=== PATIENT | male | born 1970 | race Caucasian/White ===

== ENCOUNTER 2017-02-13 20:26 | Inpatient (IN) | payer SELFPAY ==
[~2017-02-13] VITALS: Ht 188 cm; Wt 140.5 kg
--- NOTE | ~2017-02-13 | CON ---
PATIENT'S NAME: SHAI LAKE [facility] AGE: 46 Y [address] ROOM: [address] [place] [id number] LOCATION: [facility] ADMIT DATE: 02/14/2017 Consultation DISCHARGE DATE: FAMILY PHYSICIAN: PHYSICIAN, LUIS E ATTENDING PHYSICIAN: ISIDRO PATTERSON DATE OF CONSULTATION: 02/14/2017 CONSULTATION NOTE CONSULTING PHYSICIAN: Dr. Patterson. REASON FOR CONSULTATION: Kidney stones, urosepsis, and an indwelling nephrostomy tube. HISTORY OF PRESENT ILLNESS: This is a 46-year-old, admitted with probable urosepsis. He had increasing respiratory symptoms and was unstable. There was a concern regarding urosepsis. He was admitted to the intensive care unit. History was sketchy. We have now gotten his information from [place], and his is here. She is a traveling nurse and well educated. Approximately three weeks ago, he had pain symptoms. He underwent evaluation in [place]. He was found to have bilateral ureteral calculi by report. He underwent a right percutaneous nephrostomy tube drainage. They did not do anything on the left side, and based on followup scan reports and based on his current CT scan, it looks like he was able to pass the left-sided stone. Importantly, we do not see any stone or obstruction now. There are some mild inflammatory changes, and that may be related to the infection or to a recently passed stone. The right percutaneous tube became occluded. He underwent a nephrostomy tube change. By report, he had the 6-mm ureteral stone and some smaller stones in the collecting system. I do not see anything on the right side on the current CT scan. What we do see is that the percutaneous tube has been pulled back. Most of it is in the parenchyma rather than in the collecting system. There is no hydronephrosis by CT scan. I suspect that he may have been in a situation where they did not have Urology available. Therefore, Interventional Radiology, addressed the obstruction with the percutaneous tube. Based on his current scan, he does not need the percutaneous tube. With the question of urosepsis, we will also get the foreign body out. He is not draining a lot from the nephrostomy. PATIENT'S NAME: SHAI LAKE [facility] AGE: 46 Y [address] ROOM: [address] [place], [place] [address] LOCATION: [facility] ADMIT DATE: 02/14/2017 Consultation DISCHARGE DATE: FAMILY PHYSICIAN: PHYSICIAN, LUIS E ATTENDING PHYSICIAN: ISIDRO PATTERSON He does have chronic renal insufficiency. He had a creatinine of 2.2. That is now 1.7 after support and hydration. By report, he actually had a couple of episodes of dialysis while in [place]. His renal insufficiency would be multifactorial, but an obstructive component was likely a contributor and may have led to the urgent nephrostomy tube. Again, I have reviewed his CT scan personally. I reviewed the reports. There was no evidence of any significant obstruction. I went ahead and removed his nephrostomy tube. He is going to have a Nephrology evaluation by Dr. De La Torre. I have recommended a broad antibiotic coverage pending cultures. They can then be tailored appropriately. Please give me a call, if there are any other questions or concerns. IMPRESSION: 1. Bilateral ureterolithiasis by report and now resolved. 2. Indwelling right nephrostomy tube - removed. 3. Bilateral hydronephrosis secondary to bilateral ureterolithiasis by report -resolved. 4. Urosepsis with gram-negative conor on preliminary cultures. 5. Chronic renal insufficiency with recent episode of acute renal failure. PLAN AND RECOMMENDATIONS: As above. MD CHAS WILLIAM/tahir /[id number] d: 02/15/17 1356 t: 02/22/17 1159, CONSULTATION REPORT
--- NOTE | ~2017-02-13 | ER ---
PATIENT'S NAME: JAYA [facility] AGE: 46 Y [address] ROOM: [address] [place], [place] [address] LOCATION: [facility] ADMIT DATE: 02/14/2017 ER/Outpatient Report DISCHARGE DATE: FAMILY PHYSICIAN: PHYSICIAN, NO ATTENDING PHYSICIAN: ISIDRO PATTERSON Admission date and time documented in the medical record. I did see the patient at 2035 hours. CHIEF COMPLAINT: Shortness of breath x1 week, worse over the past [address] trip from [place] over the past couple days. HISTORY OF PRESENT ILLNESS: This patient is a 46-year-old male who has traveled from [place] here to [place], [place]. His , who is a traveling nurse, got a job here in [place]. Apparently, the patient was recently in the hospital in [place], ended up having a right ureteral stone that was obstructing, ended up having to have a right nephrostomy tube placed. The patient does have multiple medical problems including nephrolithiasis, ykk-mdwohbx-lrjjgagcb diabetes mellitus type 2, saddle pulmonary embolism 3 years ago, and he was code blue x2. He was on Coumadin for about 4 months and this was discontinued. He does have peripheral neuropathy secondary to his diabetes. He has had depression. He was told that when he got to [place], [place] that he needed to see a urologist and have further evaluation of his kidneys, possible lithotripsy. No headache, eyes ears, nose, throat, neck, or spine pain. No recent coughs, colds, or flus. Little lightheaded and dizzy, but no syncope or near syncope. No fall or trauma. No chest pain. No real abdominal pain, nausea, vomiting, diarrhea, or urinary frequency, urgency, or dysuria. Makes minimal amount of urine, so it is questionable what is going on with his left kidney. Does have a history of depression. Does have a history of peripheral neuropathy. No other neurological changes. Does have try-gpvdghz-shzgvmurd diabetes, but no other endocrine problems. No skin eruptions or rash. Does have peripheral edema. HOME MEDICATIONS: See attached medication list. ALLERGIES: PENICILLIN AND BEE STINGS. SOCIAL HISTORY: Nonsmoker and nondrinker. SIGNIFICANT PAST MEDICAL HISTORY: PATIENT'S NAME: JAYA [facility] AGE: 46 Y [address] ROOM: [address] [place], [place] [address] LOCATION: [facility] ADMIT DATE: 02/14/2017 ER/Outpatient Report DISCHARGE DATE: FAMILY PHYSICIAN: PHYSICIAN, NO ATTENDING PHYSICIAN: ISIDRO PATTERSON Nephrolithiasis, dtz-bnkmctv-wlwoezfkc diabetes mellitus type 2, peripheral neuropathy, pulmonary embolism, code blue x2 because of the saddle embolus, PE, depression, poor dentition. PAST SURGICAL HISTORY: PICC line placement and right nephrostomy tube placement. REVIEW OF SYSTEMS: All systems reviewed by me are negative with the exception of those discussed in the history of present illness. PHYSICAL EXAMINATION: VITAL SIGNS: Temperature 99.5, tympanic; pulse 128, regular; respirations 22; blood pressure 118/70; O2 saturation on room air is 95%. HEAD: Normocephalic. No abrasion, contusion, laceration, or swelling of the scalp or face. EYES: Extraocular muscles intact. PERRL. Sclerae and conjunctivae clear, nonicteric. EARS: Clear TMs bilaterally. NOSE: Clear. THROAT: Clear. Mucous membranes moist. Poor dentition. Multiple cavities. Edentulous in the upper jaw. NECK: No nuchal rigidity. No thyromegaly or cervical adenopathy. No tenderness. Full range of motion. SPINE: Nontender. No deformity. LUNGS: Clear. No rales, rhonchi, or wheezes. HEART: Regular. Pulses are palpable. The patient is tachypneic and tachycardic. No chest wall or ribcage pain to palpation. ABDOMEN: Large obese abdomen. Soft, nontender. Bowel tones present. No organomegaly or abnormal mass palpable. No CVA tenderness. The patient has a right nephrostomy tube. PELVIS: Stable. EXTREMITIES: Peripheral edema. No cyanosis. No deformity. NEURO: Cranial nerves appear to be intact. No lateralizing sign. The patient is awake, alert, alert, cooperative. Motor and sensory intact. SKIN: Clear. No skin eruptions or rash. EKG showed old inferior changes. No acute ST elevation, ischemic changes, or arrhythmia. Chest x-ray showed marked cardiomegaly. No acute infiltrate. We will review x-ray with the radiologist. LABORATORY DATA: CMS showed a low sodium of 134, low CO2 content of 18, elevated glucose of 301, low calcium of 8.4, elevated BUN of 30, elevated creatinine 2.2 with a low GFR of 34. Magnesium was low at 1.7. BHB acetone was elevated at 12.8. PATIENT'S NAME: SHAI LAKE [facility] AGE: 46 Y [address] ROOM: [place] [address] LOCATION: [facility] ADMIT DATE: 02/14/2017 ER/Outpatient Report DISCHARGE DATE: FAMILY PHYSICIAN: LUIS E RODRIGUEZ ATTENDING PHYSICIAN: ISIDRO PATTERSON CPK was normal at 141. Point of care cardiac enzymes were normal. CRP was elevated at 15.9. ProBNP was elevated at 376. TSH was normal at 1.3. Procalcitonin was elevated at 2.08. Lactate was normal at 1.2. D-dimer was elevated at 2.39. Urinalysis showed full field whites, 2-5 reds, 0-2 epithelial cells, many bacteria, many yeast, positive nitrites on dipstick. Venous pH was 7.44. EMERGENCY DEPARTMENT COURSE: In view of the patient's complaints of shortness of breath, he was tachycardic and tachypneic along with an elevated D-dimer with a past history of pulmonary embolism, we did go ahead with V/Q scan of his lungs. Because of his renal function, we could not do an IV contrast CT. The patient's V/Q scan of his lungs showed very low probability of pulmonary embolism according to Radiology report. We are concerned that the patient may have sepsis. He does fit sepsis criteria with tachycardia, tachypnea, fever, elevated procalcitonin, elevated creatinine, elevated bilirubin. He has been stable with his blood pressure. We did start the patient on aggressive IV fluids, given him 2 L here in the emergency room and then started him on 150 mL an hour. We did do blood cultures, results pending. We did also start the patient on IV antibiotics including Zyvox, Levaquin, and meropenem IV here in the emergency department. IMPRESSION: 1. Severe sepsis with start time at 2357 hours. 2. Xqrqm-kn-nmlmvls renal failure. 3. Dvm-qqtlbwh-rvcumazzw diabetes mellitus with early diabetic ketoacidosis. 4. Shortness of breath with still a possibility of pulmonary embolism with his risk factors. 5. Peripheral neuropathy. 6. Depression. 7. History of nephrolithiasis with right nephrostomy tube because of obstruction of the right ureter secondary to ureteral stone. Need to rule out obstruction or problems with the left kidney. PLAN: I did discuss this patient with Dr. Patterson, hospitalist. Dr. Patterson is coming to the emergency room to evaluate the patient. We will proceed on his recommendations. The patient will be admitted either to the ICU or PCU telemetry. We will need Cardiology consult, industrial design engineer consult, and Urology consult. Discussion ensued with the patient concerning my findings and recommendations, he and his understand. Accumulated critical care time 40 minutes. PATIENT'S NAME: SHAI LAKE [facility] AGE: 46 Y [address] ROOM: [id number] [place] [id number] LOCATION: [facility] ADMIT DATE: 02/14/2017 ER/Outpatient Report DISCHARGE DATE: FAMILY PHYSICIAN: PHYSICIAN, NO ATTENDING PHYSICIAN: ISIDRO PATTERSON MD OPAL COLLAZO/modl /[id number] d: 02/14/17 0511 t: 02/15/17 1805, OUTPATIENT REPORT
--- NOTE | ~2017-02-13 | ENPV ---
Vascular Lower Extremities DVT Study Procedure Demographics Patient Name SHAI LAKE Date of Study 02/14/2017 Patient Number [id number] Gender Male Date of 1970 Age 46 Visit Number [id number] Height Accession Number [id number] Weight Room Number G6214 BSA BMI Referring Jayleen Mari MD Interpreting Fernandez Sr MD Physician Physician Physician Ordering Physician Jayleen Mari Physical Education Professor Merchandise Coordinator Elmira De La Rosa T Conclusions Summary No evidence of deep vein thrombosis or superficial thrombophlebitis in the lower extremities bilaterally . Procedure Type of Study: Veins:Lower Extremities DVT Study, Venous Duplex Lower Extremity Bilateral. Indications for Study:Swelling of Limb. Appropriate Use Criteria:9 Patient Status:STAT. Study Location:ER. Technical Quality:Limited visualization due to body habitus. Velocities are measured in cm/s ; Diameters are measured in cm Right Lower Extremities DVT Study Measurements Right 2D and Doppler Measurements + + + + +------+------+ + !Location !Visualized!Compressibility!Thrombosis!Signal!Reflux!Reflux ! ! ! ! ! ! ! !(sec) ! + + + + +------+------+ + !GSV Thigh !Yes !Yes !None !Phasic!No ! ! + + + + +------+------+ + !Common !Yes !Yes !None !Phasic!No ! ! !Femoral ! ! ! ! ! ! ! + + + + +------+------+ + !Prox !Yes !Yes !None !Phasic!No ! ! !Femoral ! ! ! ! ! ! ! + + + + +------+------+ + !Mid Femoral!Yes !Yes !None !Phasic!No ! ! + + + + +------+------+ + !Dist !Yes !Yes !None !Phasic!No ! ! !Femoral ! ! ! ! ! ! ! + + + + +------+------+ + !Popliteal !Yes !Yes !None !Phasic!No ! ! + + + + +------+------+ + !Gastroc !Yes !Yes !None !Phasic!No ! ! + + + + +------+------+ + !PTV !Yes !Yes !None !Phasic!No ! ! + + + + +------+------+ + !Peroneal !Yes !Yes !None !Phasic!No ! ! + + + + +------+------+ + Left Lower Extremities DVT Study Measurements Left 2D and Doppler Measurements + + + + +------+------+ + !Location !Visualized!Compressibility!Thrombosis!Signal!Reflux!Reflux ! ! ! ! ! ! ! !(sec) ! + + + + +------+------+ + !GSV Thigh !Yes !Yes !None !Phasic!No ! ! + + + + +------+------+ + !Common !Yes !Yes !None !Phasic!No ! ! !Femoral ! ! ! ! ! ! ! + + + + +------+------+ + !Prox !Yes !Yes !None !Phasic!No ! ! !Femoral ! ! ! ! ! ! ! + + + + +------+------+ + !Mid Femoral!Yes !Yes !None !Phasic!No ! ! + + + + +------+------+ + !Dist !Yes !Yes !None !Phasic!No ! ! !Femoral ! ! ! ! ! ! ! + + + + +------+------+ + !Popliteal !Yes !Yes !None !Phasic!No ! ! + + + + +------+------+ + !Gastroc !Yes !Yes !None !Phasic!No ! ! + + + + +------+------+ + !PTV !Yes !Yes !None !Phasic!No ! ! + + + + +------+------+ + !Peroneal !Yes !Yes !None !Phasic!No ! ! + + + + +------+------+ + Signature dtt: RAE COMER dtlizzy: 02/14/17 0031 Physician Self La
--- NOTE | ~2017-02-13 | ECHO ---
Transthoracic Echocardiography Report (TTE) Demographics Patient Name SHAI LAKE Date of Study 02/14/2017 Patient Number [id number] Visit Number [id number] Date of 1970 Room Number G6214 Accession Number [id number] Gender Male Age 46 year(s) Referring Jayleen Mari MD Extrusion Manager Elmira De La Rosa RVT Physician Physician Interpreting Berna Otero Jumbo Operator Physician Supervising Ordering Physician Pascale Barragan MD, MD/P Nurse Stress Infrastructure Developer Conclusions Summary The estimated left ventricular ejection fraction is 50%. Mildly reduced RV function. Procedure Type of Study TTE procedure:2D Echocardiogram. Procedure Date Date: 02/14/2017 Start: 12:59 AM Study Location: ER Technical Quality: Poor visualization due to body habitus. Indications:Dyspnea/SOB. Appropriate Use Criteria: 9 Patient Status: STAT Contrast Medium: Definity. Amount - 4 ml HR: 121 bpm Findings Left Ventricle Normal left ventricle size and function. Right Ventricle Normal right ventricle structure with mild hypokinesia. Left Atrium Normal left atrial size. Right Atrium Normal right atrial size. Mitral Valve Normal mitral valve structure and function. Aortic Valve Normal aortic valve structure and function. Tricuspid Valve Normal tricuspid valve structure and function. Pulmonic Valve Pulmonic valve is not well seen. Pericardial Effusion No evidence of pericardial effusion. Miscellaneous Visualized portions of the aortic root and ascending aorta appear normal in size. Pleural Effusion No evidence of pleural effusion. Contractility Score LV regional wall motion:(0-Non visualized 1-Normal 2-Hypokinesis 3-Akinesis 4-Dyskinesis 5-Aneurysm) Signature dtt: Shanna Coronel dtd: 02/14/17 0059 Physician Self Edit
--- NOTE | ~2017-02-13 | DS ---
PATIENT'S NAME: JAYA [facility] AGE: 46 Y [address] ROOM: [place] [address] LOCATION: GICU ADMIT DATE: 02/14/2017 Discharge Summary DISCHARGE DATE: 02/19/2017 FAMILY PHYSICIAN: PHYSICIAN, NO ATTENDING PHYSICIAN: Kiran Ashraf ADMITTING DIAGNOSIS: Severe sepsis secondary to urinary tract infection with E. coli bacteremia. DISCHARGE DIAGNOSIS: Severe sepsis secondary to E. coli bacteremia, resolving. SECONDARY DIAGNOSES: 1. Acute pyelonephritis. 2. Acute hypoxic respiratory failure secondary to severe sepsis. 3. Hypertension. 4. Obesity. 5. Restrictive airway disease. 6. NIK, resolved. 7. Hypertension. PROCEDURES PERFORMED: 1. Bilateral venous Doppler, negative for DVT. 2. V/Q scan, low probability of thromboembolism. 3. CT of abdomen and pelvis that shows left-sided nephrostomy tube and pyelonephritis without stone. 4. Echocardiogram, EF of 50% with mild RV dysfunction. 5. PFT that shows restrictive airway disease. CONSULTATION: Nephrology and Urology. HISTORY OF PRESENT ILLNESS: The patient is a 46-year-old gentleman with past medical history of hypertension; history of PE, treated with Coumadin for 4 months; and recent history of obstructive pyelonephritis, status post nephrostomy tube placement at [facility] as early as January 2017, who presents here with severe sepsis secondary to E. coli. The patient was recently diagnosed with obstructive uropathy complicated with acute pyelonephritis and had a nephrostomy tube placed at [facility]. The patient was also discharged on daptomycin for Enterococcus faecalis which he finished his treatment. Nephrostomy tube was not taken out and was told to follow up with Urology at [place]. The patient presented with fatigue, fever, chills, and dyspnea on exertion. HOSPITAL COURSE: The patient was noted to be in severe sepsis. Blood culture was taken. The patient's old daptomycin was continued. The patient was PATIENT'S NAME: JAYA [facility] AGE: 46 Y [address] ROOM: [place] [address] LOCATION: GICU ADMIT DATE: 02/14/2017 Discharge Summary DISCHARGE DATE: 02/19/2017 FAMILY PHYSICIAN: PHYSICIAN, NO ATTENDING PHYSICIAN: Kiran Ashraf started on meropenem. Blood culture one out of two grew E. coli, resistant to Levaquin and Cipro, however, sensitive to cephalosporin. Urine culture also grew E. coli with the same sensitivity. Initially when presented, he had dyspnea on exertion and there was a concern for another possible PE. PE evaluation was done with V/Q scan which shows low probability and also venous Doppler was negative. The patient's acute hypoxic respiratory failure improved with control of severe sepsis. The patient's antibiotic was initially changed from meropenem and daptomycin to ceftriaxone 2 g daily. The patient continued to show improvement. The patient was started on cefuroxime 500 mg b.i.d. and continued to be afebrile and shows improvement. The patient was also seen by Urology during the stay and CT of the abdomen and pelvis shows no obstructive uropathy and his nephrostomy tube was removed. The patient also had acute kidney injury on presentation secondary to severe sepsis and prerenal, improved with IV fluid. The patient was also seen by design engineering intern during the stay. The patient continued to show marked improvement and was discharged in stable condition to continue with oral medication of cefuroxime 500 mg b.i.d. for 10 more days and will follow up with primary care physician. The patient does not have primary care physician to arrange primary care physician follow up before discharge. CONDITION: Stable. DISPOSITION: Home. DISCHARGE MEDICATION: Please see MAR. DISCHARGE INSTRUCTION: Long discussion made about to visit his primary care physician or to the emergency department if the patient does have nausea, vomiting, fever, chills, flank pain, and generalized fatigueness. Followup with primary care physician and Nephrology within 1 week. PHYSICAL EXAMINATION: VITAL SIGNS: Stable. HEAD: Normocephalic and atraumatic. EYES: Extraocular muscles intact. CHEST: Clear to auscultation bilaterally. HEART: Regular rate and rhythm. No murmurs, rubs, or gallops. ABDOMEN: Soft, nontender, and nondistended. Bowel sounds present. SKIN: Warm to touch. REPLANTING MACHINE CREWMAN: The patient is alert and oriented x3. Motor and sensory grossly intact. Greater than 30 minutes was spent on discharge planning. PATIENT'S NAME: SHAI LAKE [facility] AGE: 46 Y [address] ROOM: [id number] [place] [address] LOCATION: GICU ADMIT DATE: 02/14/2017 Discharge Summary DISCHARGE DATE: 02/19/2017 FAMILY PHYSICIAN: LUIS E RODRIGUEZ ATTENDING PHYSICIAN: Kiran Ashraf MD SHIRIN KO/tahir /[id number] d: 02/19/17 1135 t: 02/21/17 1109, DISCHARGE SUMMARY
--- NOTE | ~2017-02-13 | CON ---
PATIENT'S NAME: [facility] AGE: 46 Y [address] ROOM: [id number] [place], [place] [address] LOCATION: GICU ADMIT DATE: 02/14/2017 Consultation DISCHARGE DATE: FAMILY PHYSICIAN: PHYSICIAN, LUIS E ATTENDING PHYSICIAN: ISIDRO PATTERSON DATE OF CONSULTATION: 02/14/2017 It is [facility] Nephrology consultation. REASON FOR CONSULTATION: Acute kidney injury with history of obstructive uropathy, recent history of hemodialysis. HISTORY OF PRESENT ILLNESS: This is a 46-year-old male patient with an obstructive uropathy and questionable solitary functioning kidney, who was admitted with acute kidney injury possibly secondary to prerenal versus ATN (septic/hemodynamic). Urine output improved with volume expansion and creatinine came from 2.2 down to 1.7 now. The patient does have a remote history of nephrolithiasis with nephrostomy placement on the right kidney. That led to acute renal failure secondary to the obstructive uropathy and the patient did require dialysis x2 sessions in [facility] in mid January. Nephrostomy tube placement was on January 24, 2017. The patient was discharged and recommended for followup. However his did take a traveling nursing position in [place] and they therefore relocated and plan to set up a further evaluation with urology here in [place], once they got settled. In the interim, the patient did report a decreased appetite, fatigue, and nausea and vomiting, times last four days. The patient reports that prior to him leaving [place] he was feeling okay. However during his transit here, he began to feel ill. The patient was noted to be on home medications including lisinopril prior to his admission here at [facility]. The patient came into the emergency room complaining of shortness of breath and was subsequently admitted. The patient does have a complicated past medical history that also included saddle pulmonary embolism and the patient has not been on any anticoagulation. The V/Q scan was performed with low probability for PE following admission. The patient's creatinine today is 1.7. He was noted to have a temporary dialysis catheter in his right IJ during his hospitalization in [place]. We are currently waiting further documentation of his hospital stay. However the patient has reportedly had decreased urinary output of approximately 225 mL since admission. Therefore due to the patient's decreased urinary output as well as acute kidney injury with recent obstructive uropathy and hemodialysis. Dr. De La Torre and Nephrology have been asked to consult on the patient and manage his inpatient care. PAST MEDICAL HISTORY: As listed above including. 1. Type 2 diabetes. 2. Depression. 3. Recent acute kidney injury. 4. History of hemodialysis x2 sessions. 5. Hypertension. 6. History of pulmonary embolism. 7. History of Code Blue (secondary to pulmonary embolism). 8. Hyperlipidemia. 9. History of bilateral nephrolithiasis requiring right nephrostomy tube placement in January of 2017PATIENT'S NAME: [facility] AGE: 46 Y [address] [place]: [id number] [id number] LOCATION: [facility] ADMIT DATE: 02/14/2017 Consultation DISCHARGE DATE: FAMILY PHYSICIAN: PHYSICIAN, LUIS E ATTENDING PHYSICIAN: ISIDRO PATTERSON PAST SURGICAL HISTORY: Right nephrostomy tube placement on January 24, 2017. ALLERGIES: PENICILLIN. CURRENT HOME MEDICATIONS: Include, 1. Glipizide 5 mg 1 tablet twice a day. 2. Landenberg-3 fatty acids one tablet daily. 3. Lisinopril 20 mg daily. 4. Amlodipine 10 mg daily. 5. Gabapentin 100 mg twice a day. 6. CoQ enzyme 10 30 mg p.o. daily. SOCIAL HISTORY: The patient is a social alcohol drinker. He denies any abuse or withdrawal in the past. He denies any illicit drug use, cigarette, or tobacco use. FAMILY HISTORY: Significant for DVT in his father who also had colon cancer in old age. His mother had ovarian cancer. There is no history of kidney disease or dialysis. REVIEW OF SYSTEMS: GENERAL: Positive for fatigue. Positive for fever. Positive for loss of appetite. HEENT: Eyes: No double vision, blurred vision. Nose: No epistaxis or rhinorrhea. Mouth: No gingival bleeding. Throat: No sore throat, hoarseness, or cough. RESPIRATORY: Positive for shortness of breath. CARDIOVASCULAR: Denies chest pain or palpitations. GASTROINTESTINAL: Positive for nausea and vomiting. Positive loss of appetite. Denies any diarrhea. Denies hematemesis or hematochezia. NEUROLOGICAL: Denies any numbness and tingling in upper or lower extremities. IMMUNOLOGICAL: Positive for history of UTI and is on daptomycin prior to his arrival. HEMATOLOGICAL: Denies any bruising or easy bleeding. PSYCHIATRIC: Positive for depression. LABORATORY DATA: ProBNP 376. WBCs 10, hemoglobin 10.9, hematocrit 31, and platelets 179. Glucose 301, BUN 30, creatinine 2.2. Sodium 134, potassium 3.8, chloride 104, CO2 18, calcium 8.4, total protein 7.6, albumin 3.1. AST and ALT are within normal limits. Alkaline phosphatase is 67, magnesium 1.7. INR 1.06. Urinalysis is positive for leukocytes, glucose, to many white blood cells to count, 150 blood, RBCs 2-5, and many bacteria. TSH is 1.3. Chest x-ray was performed on admission showing no consolidation or infiltrate. V/Q scan was performed, showing low probability for PE. EKG on admission showed no acute ST-T wave abnormalities. Sinus tachycardia. Rate was 117 beats per minute.PATIENT'S NAME: [facility] AGE: 46 Y [address] ROOM: [place] [address] LOCATION: [facility] ADMIT DATE: 02/14/2017 Consultation DISCHARGE DATE: FAMILY PHYSICIAN: PHYSICIAN, NO ATTENDING PHYSICIAN: ISIDRO PATTERSON PHYSICAL EXAMINATION: VITAL SIGNS: Blood pressure is 90/54, heart rate 128, respirations 24, saturations 94% on 2 L nasal cannula and temperature is 99. GENERAL: On exam, this is a white obese male, who is in no acute distress. He is alert oriented to person, place, and time. HEENT: His head is normocephalic and atraumatic. Eyes, pupils are equal, round, and reactive to light and accommodation. EOMs intact. Nose, midline. Mouth, no gingival bleeding. Throat, without lymphadenopathy or carotid bruits. NECK: Full. No JVD noted. CARDIOVASCULAR: Tachycardic rhythm with apical heart rate of 124 beats per minute. Unable to appreciate any murmurs, rubs, or thrills. ABDOMEN: Obese nontender nondistended. Bowel sounds positive. There is a right nephrostomy tube noted with no CVA tenderness. EXTREMITIES: No signs of peripheral edema, clubbing, or cyanosis. SKIN: No rashes or lesions. NEUROLOGIC: Cranial nerves 2 through 12 are grossly intact. GENITOURINARY: As above. Right nephrostomy tube draining about 25 mL of clear yellow urine. ASSESSMENT AND PLAN: 1. Acute kidney injury on chronic kidney disease stage 3. This is likely multifactorial or secondary to prerenal versus acute tubular necrosis. Urine output has improved with volume expansion and creatinine is currently pending. It is noted to have decreased from 2.2 to 1.7. We are going to obtain a stat renal ultrasound for further evaluation of hydronephrosis that could be related to obstruction due to nephrolithiasis. We are going to initiate D5W with 3 amps of sodium bicarbonate x1 L bolus. We will start IV infusion at 200 mL an hour. We will obtain a urine osmolality to labs this morning. Continue to monitor strict intake and output as well as daily weights. At this time, if the patient's urine outputs do improve, we would likely hold off on initiating hemodialysis. However, if the patient's urinary outputs do decrease or become obsolete and Dr. De La Torre does recommend at this time that we prepare for temporary line insertion and hemodialysis following. At this time, the patient does not appear to be grossly uremic. So we will hold off until 12 o'clock check of urinary outputs. 2. Nephrolithiasis status post nephrostomy tube placement. Urology has been consulted for further recommendations. 3. Urosepsis. The patient is on daptomycin. Meropenem will be added. 4. Metabolic acidosis. We will initiate IV sodium bicarbonate at this time. Continue to monitor strict I's and O's. 5. This patient has been seen and assessed by Dr. De La Torre. His care is being conducted in consultation Dr. De La Torre as well as me. We will plan further recommendations as they are forthcoming. LINDA DOTSON DNP, [employer] [facility] MD SHABANA HOLDEN/modl /[id number] d: 02/15/17 1924 t: 03/01/17 1129, CONSULTATION REPORT
--- NOTE | ~2017-02-13 | PUL ---
PATIENT'S NAME: SHAI [facility] AGE: 46 Y [address] ROOM: [id number] [place], [place] [address] LOCATION: [facility] ADMIT DATE: 02/14/2017 Pulmonary DISCHARGE DATE: FAMILY PHYSICIAN: PHYSICIAN, NO ATTENDING PHYSICIAN: ISIDRO PATTERSON NAME OF PROCEDURE: Bedside Spirometry DATE OF PROCEDURE: February 16, 2017 TECH: ARVIND Baig REASON FOR EXAM: Shortness of breath PROCEDURE PERFORMED: Spirometry with bronchodilator assessment. RESULTS: Pre bronchodilator FVC is 2.21 liters, 38% of predicted. Pre bronchodilator FEV1 was 1.77 liters, 39% of predicted. FEV1/FVC was 79.9%, 102% of predicted. The spirometric data did not change significantly following an inhaled bronchodilator. Please note the mining technician comments there was only one acceptable maneuver further interpretation of the test is limited. PHYSICIAN INTERPRETATION: The above spirometry data indicates restrictive changes, measurement of lung volumes with full pulmonary function testing is recommended. MD PILY PRICE/riley /[id number] dtt: 02/17/17 1644 , SELAM MCCLAIN dtd: 02/17/17 1549
--- NOTE | ~2017-02-13 | HP ---
PATIENT'S NAME: [facility] AGE: 46 Y [address] ROOM: [id number] [place], [place] [id number] LOCATION: [facility] ADMIT DATE: 02/14/2017 History & Physical DISCHARGE DATE: FAMILY PHYSICIAN: PHYSICIAN, LUIS E ATTENDING PHYSICIAN: ISIDRO PATTERSON DATE OF SERVICE: CHIEF COMPLAINT: Urinary frequency, urgency, and also exertional dyspnea. HISTORY OF PRESENT ILLNESS: This is a 46-year-old, male who has a history remarkable for prior episode of pulmonary embolism diagnosed 3 years ago back in [place]. At that time, he was told it was due to immobilization. The patient at that time was treated with tPA and complicated by cardiac arrest twice after tPA requiring intubation and a prolonged ICU admission. Eventually, the patient was treated with IV heparin drip and he was discharged with Coumadin. However, he only took Coumadin for 4 months, and he changed to aspirin per his primary care physician who is a physician assistant to the president. The patient was put on aspirin because he ran out of insurance. The patient says that he has been doing actually quite well while on aspirin. Denies any shortness of breath at that time. The story is that his is a traveler nurse and she got a job in [place], [place]. So, they moved from [place] to [place] for his 's job. While they were in [place] around January 20, 2017, the patient was complaining of a right flank pain with inability to urinate, nausea, vomiting, and the patient was seen in [facility] in [place] in early January 2017. At that time, the patient was found to have bilateral nephrolithiasis and also kidney failure, underwent right nephrostomy tube placement and a stent was placed and at that time, the patient was also complicated with worsening kidney function requiring temporary hemodialysis. The nephrostomy tube was placed around January 23, 2017. The patient was later discharged and was able to urinate on his own, but he was discharged with nephrostomy tube placed. He was told to follow up with a urologist when he comes back to [place]. However, when the patient went home and shortly after the patient right nephrostomy tube stopped draining urine, it was clogged. Therefore, he went back to the same hospital a few days after and according to the patient, the patient had exchange of the right nephrostomy tube and at that time, he was also found to have UTI and he was treated with long-term antibiotics with daptomycin. He also had a PICC line placed at that time for prolonged antibiotics. The patient just finished the antibiotics a few days ago and the PICC line was removed just about 2-3 days ago. PATIENT'S NAME: [facility] AGE: 46 Y [address] ROOM: [address] [place] [id number] LOCATION: [facility] ADMIT DATE: 02/14/2017 History & Physical DISCHARGE DATE: FAMILY PHYSICIAN: LUIS E RODRIGUEZ ATTENDING PHYSICIAN: ISIDRO PATTERSON However, for the last few days, the patient has been complaining again of urinary frequency or urgency, but he denies any dysuria or any flank pain or abdominal pain. However, he does complain of shortness of breath, especially on exertion that happened about the last few days and has been getting worse. He also has been feeling some chills, but he never took temperature at home. He denies seeing any hematuria or chest pain. For the last few days, he has been having some loose stools about 2-3 episodes per day. He denies any prior history of GI bleeding. The patient and his came back to [place] and it took him few days to drive back home because he was complaining of worsening shortness of breath on exertion. They just got back here from [place] just last night to [place]. Because of the worsening exertional dyspnea, urinary urgency, frequency, and chills, the patient came here tonight for evaluation in our emergency department. Please refer to the emergency room section for details for all the events happening in the emergency room. REVIEW OF SYSTEMS: As mentioned in the history of present illness. All other systems were reviewed and were negative except those mentioned in the history of present illness. PAST MEDICAL HISTORY: 1. Depression. 2. Diabetes type 2. 3. Hypertension. 4. Prior history of pulmonary embolism 3 years ago in [place] where he received the tPA and complicated by cardiac arrest twice requiring prolonged ICU admission with intubation and treated with heparin drip and discharged on Coumadin, but he only took it for 4 months and then his medical insurance ran out. Therefore, he was put on aspirin by his medical provider who is a physician assistant to the president. He has been taking aspirin since then. 5. Hyperlipidemia. 6. NIK or CKD, which would require temporary hemodialysis recently in January 2017 when he had bilateral nephrolithiasis requiring right nephrostomy tube placement and this happened in mid January 2017. ALLERGIES: PENICILLIN. HE DOES NOT KNOW WHICH REACTION AND BEE STING. HE ALSO DOES NOT KNOW WHAT REACTION, PER PRIMARY IS ANAPHYLAXIS. HOME MEDICATIONS: Currently, it has been reconciled. He does take aspirin at home daily. PATIENT'S NAME: [facility] AGE: 46 Y [address] ROOM: [id number] [place] [id number] LOCATION: [facility] ADMIT DATE: 02/14/2017 History & Physical DISCHARGE DATE: FAMILY PHYSICIAN: PHYSICIAN, LUIS E ATTENDING PHYSICIAN: ISIDRO PATTERSON SOCIAL HISTORY: The patient is a social alcohol drinker. He denies any alcohol abuse or alcohol withdrawal in the past. Last drink was few days ago. He denies any cigarette or any illegal drug use. PAST SURGICAL HISTORY: Status post right nephrostomy tube placement in mid January 2017. FAMILY HISTORY: Father had a DVT and a colon cancer at old age and mother also had ovarian cancer also at old age. PHYSICAL EXAMINATION: VITAL SIGNS: At the time of evaluation in the emergency room, temperature was 99, heart rate was 128, respirations were 30, blood pressure was 136/87, saturation was 94% on room air. GENERAL APPEARANCE: The patient has a flat affect. The patient is alert and oriented x3, currently in no acute distress. HEENT: Pupils are equally round and reactive to light. Extraocular muscles intact. Anicteric sclerae. Nasal turbinates are normal bilaterally. Dry oral mucosa. NECK: No JVD. CARDIOVASCULAR: Regular and tachycardic. No murmur, no rubs, no gallops. RESPIRATORY: Clear to auscultation. No rales, no rhonchi, no wheezing, no crackles. ABDOMEN: Obese, soft, nontender, nondistended, bowel are sounds present. No mass. No costovertebral angle tenderness to palpation. Bowel sounds are present. EXTREMITIES: No edema in upper or lower extremities. No bilateral posterior calf tenderness to palpation. Homans sign negative. SKIN: No ulcer, no rash, no cyanosis. NEUROLOGICAL: Grossly nonfocal. GENITOURINARY: He has an intact right nephrostomy tube placement draining about 50 mL of yellow-looking urine, which was cloudy. LABORATORY DATA: Venous blood gas: PH was 7.44, pCO2 28, bicarbonate 19, saturation 96% FiO2 on room air. Lactic acid 1.2. Troponin less than 0.04, followed by less than 0.04. CPK 141, followed by 124. ProBNP 376, followed by 282. White blood cells 10.0, hemoglobin 10.9, hematocrit 31, MCV 84.5, platelets 179, glucose 301, BUN 30, creatinine 2.2. Sodium 134, potassium 3.8, chloride 104, CO2 18, calcium 8.4. Total protein 7.6, albumin 3.1, AST 26, ALT 22, alkaline phosphatase 67, total bilirubin 3.0, magnesium 1.7, anion gap 15.8, INR 1.06, PTT 25. Urinalysis: PATIENT'S NAME: [facility] AGE: 46 Y [address] ROOM: [place] [address] LOCATION: [facility] ADMIT DATE: 02/14/2017 History & Physical DISCHARGE DATE: FAMILY PHYSICIAN: PHYSICIAN, NO ATTENDING PHYSICIAN: ISIDRO PATTERSON 500 leukocytes, 250 glucose, too many white blood cells to count, 150 blood, red blood cells 2-5, bacteria many. GFR 34. Acetone positive. CK-MB 0.6, followed by less than 0.5. CRP 15.9. TSH 1.3. Procalcitonin 2.08. D-dimer 2.39. IMAGING STUDIES: Chest x-ray on admission, based on the preliminary report on my review, the heart size at the upper limits of normal without failure. No consolidation. No effusion. On ventilation/perfusion scan on admission, the preliminary report read as a very low probability of pulmonary embolism. EKG on admission, EKG show pattern consistent with S1, Q3, T3, where I can appreciate S-wave in lead #1 and Q-wave in lead #3 and also inverted T-wave in lead #3 concerning for pulmonary embolism. Otherwise, sinus tachycardia, heart rate 117, QTc 412 milliseconds. NV 131 milliseconds, QTc 412 milliseconds. No axis deviation. No right bundle-branch block. Transthoracic echo at the bedside in the emergency room read by Dr. Coronel in person, EF was more than 50%. No pericardial effusion. There was a questionable right atrium thrombus, but after the infinity and the bubble study, Dr. Coronel determined that it was not a thrombus. No evidence of a right ventricular strain. This is given to me in person by the verbal report. Please follow up with the official report once it is dictated by Dr. Coronel in the morning. ER COURSE: In the emergency room, due to the finding on EKG, it was S1, Q3, T3 and that given his multiple risk factors for PE including prior PE that was partially treated, obesity, recent long distance travel from [place], took him about 4 days ago to get here. Tachycardia, dyspnea on exertion, that currently is not quite clear what cause or other possible explanation, and mild elevation of a proBNP concerning for right heart strain and possibility of a pulmonary embolism. Therefore, I called an accessibility lift technician to perform bilateral venous ultrasound to rule out DVT and also perform echo at the bedside transthoracic stat looking for a right ventricular heart strain. According to the ict help desk technician, Rj, the bilateral lower extremity venous duplex ultrasound did not have any DVT or SVT. Initially, Rj suspected that there might be a right atrium thrombus. Therefore, I called jemal Newby to review the echo for us. He is staying here in person, saw the echo in person, and did a bubble study and the infinity study and did tell me that there was no right ventricular heart strain, also no pericardial effusion, and also the right atrium mass is not a thrombus. EF was more than 50%. This was given to me by verbal report in person by Dr. Coronel. Given that, the patient PATIENT'S NAME: [facility] AGE: 46 Y [address] ROOM: [place] [address] LOCATION: [facility] ADMIT DATE: 02/14/2017 History & Physical DISCHARGE DATE: FAMILY PHYSICIAN: PHYSICIAN, NO ATTENDING PHYSICIAN: ISIDRO PATTERSON does have multiple risk factors including the typical finding of the S1, Q3, T3 on the EKG, as mentioned before, the possibility of PE could still not be ruled out. The only way to rule out is by using CT angiogram of the chest per PE protocol. However, his kidney function forbids us from doing that at this point. The patient got 2 L of normal saline bolus in the ED even though his blood pressure was never hypotensive, but this is for maintenance of the blood pressure in the higher end and the patient's proBNP actually went down and has not required any oxygen nasal cannula still. Therefore, heart failure is probably less likely at this point, given that the patient also looks dry on examination and there is no edema in the legs. Per Dr. Coronel, the shortness of breath has to be investigated and the PE can still not be ruled out until we perform a CT of the chest with PE protocol. Therefore, Dr. Coronel recommended to start IV heparin drip empirically to cover for possible PE, which could not be ruled out at this point pending CT chest with PE protocol and for that to happen, we will need better kidney function. Therefore, Dr. Coronel also recommended consulting Nephrology to try to optimize the kidney function good enough until we can do a CT of the chest with PE protocol to definitely rule out he has a PE or not. In the meantime, Dr. Coronel recommended IV heparin drip. Given that the patient just roughly 1 month ago had a right nephrostomy tube placed and he is anemic on presentation, that showed this is chronic or acute and we do not know what his baseline is. The patient also has a microscopic hematuria, but not macroscopic hematuria on examination. Therefore, the plan per Dr. Coronel will be consulting Nephrology to try to optimize the kidney function and then can perform CT of the chest with PE protocol to definitely rule out PE. Dr. Coronel recommended to continue IV heparin drip per PE protocol until the test can be performed due to the concern of bleeding into the right nephrostomy tube, due to his recent nephrostomy tube placement on the right side just roughly 1 month ago back in [facility]. I placed a phone call to on-call urologist, Dr. Sandy, and I explained to him about the case and about safety and the concern for using IV heparin drip with a recent right nephrostomy tube placement roughly [address] Sandy recommended to go ahead and start IV heparin drip and watch him closely. In the emergency room, the patient was also found to have a severe sepsis from the sepsis order set from the UTI. In the ED, the patient got 1 dose of IV meropenem and IV Levaquin and also IV linezolid, and about 2 L of normal saline bolus. Just for the records, the patient was never hypotensive on arrival. The patient was on O2 room air saturating at 94%. However, he is tachypneic breathing around the high 20s and also he is tachycardic with a heart rate in the mid 120s. The patient will be admitted to the ICU for severe sepsis and will also be consulting Urology for the management of the right-sided nephrolithiasis, status post nephrostomy tube placement 1 month ago back in [place]. Before the patient goes up to the ICU, will be getting a CT chest, abdomen, and pelvis without contrast. CT of the chest to rule out any finding of a possible infiltrate or effusion to suggest heart failure that would explain the PATIENT'S NAME: [facility] AGE: 46 Y [address] ROOM: [place] [address] LOCATION: [facility] ADMIT DATE: 02/14/2017 History & Physical DISCHARGE DATE: FAMILY PHYSICIAN: PHYSICIAN, LUIS E ATTENDING PHYSICIAN: ISIDRO PATTERSON patient's dyspnea on exertion and a CT of the abdomen and pelvis to look better at the anatomy of the kidneys and also looking at the right-sided nephrostomy tube placement for any evidence of pyelonephritis and looking at the stone. Therefore, he has a history of bilateral nephrolithiasis. The patient will be going to ICU right now. ASSESSMENT AND PLAN: 1. Regarding his severe sepsis secondary to urinary tract infection: Cannot rule out pyelonephritis depending on the CT of the abdomen and pelvis without contrast to see for any fat stranding or any inflammation around the perinephric area. For now, I will cover him with meropenem, which is a good coverage for complicated urinary tract infection with possible pyelonephritis. I will get a CT of the abdomen and pelvis without contrast to better visualize the kidneys and kidney stones and also the right nephrostomy tube placement. I will place a consult for Urology in the morning for management of his bilateral nephrolithiasis. Get a urine culture. Get blood cultures. Sepsis order time was detected at 2357 hours of February 13, 2017, and the sepsis order has already been completed and already placed in the chart. Further plan will depend on clinical course. 2. Regarding his acute kidney injury versus chronic kidney disease versus acute kidney injury on chronic kidney disease: Not sure what is the baseline, but the patient's told me that upon discharge from the [facility], his creatinine was around 1.5 to 1.7, but she is not quite sure. Therefore, this could be acute kidney injury on chronic kidney disease. The patient had a bladder scan in the emergency room, which would show 5 mL of urine in the bladder. For now, we will continue IV fluids for hydration. He got 2 L bolus in the ED. I will continue with maintenance in the ICU. I will be consulting Nephrology team per Dr. Coronel's recommendation to try to optimize the kidney function, so we can perform a CT of the chest with a PE protocol to definitely rule out pulmonary embolism. I will check urine electrolytes including urine sodium and urine creatinine. Further plan will depend on the clinical course. Urine culture as well. 3. Mild diabetic ketoacidosis in the setting with type 2 diabetes with positive acetone: I will treat him with subcu insulin. I will be checking with subcu insulin regimen given that his diabetic ketoacidosis is very mild and hyperglycemia is barely in the low 300s. We will follow the diabetic ketoacidosis protocol with a subcu regimen by using the aggressive NovoLog every 4 hours and also be checking the BMP in 4 hours. Continue IV fluids with the normal saline and replace potassium as needed. 4. Regarding his dyspnea concerning for pulmonary embolism, which could still not be ruled out: Could not be ruled out because he has so many risk factor and his modified Wells score is high enough to consider PATIENT'S NAME: [facility] AGE: 46 Y [address] ROOM: [address] [address] LOCATION: [facility] ADMIT DATE: 02/14/2017 History & Physical DISCHARGE DATE: FAMILY PHYSICIAN: PHYSICIAN, NO ATTENDING PHYSICIAN: ISIDRO PATTERSON highly likely to have a pulmonary embolism. However, his transthoracic echo and V/Q scan go against that. Per Dr. Coronel, we will cover him empirically with IV heparin drip given that he does have a finding of S1, Q3 T-inversion in lead III on EKG and also multiple risk factors with a high Wells score and unexplained dyspnea on exertion at the moment. We will check a CT of the chest without contrast looking for any possible infiltrate or any signs of heart failure and also, I already spoke to the on-call urologist, Dr. Sandy, who says to go ahead and give the patient IV heparin drip in the setting of having a right nephrostomy tube placed. I will cover him with a p.o. Protonix as well in the setting of using IV heparin drip. Eventually, the patient will require a CT of the chest with pulmonary embolism protocol to definitely rule pulmonary embolism. For that to happen, the patient will need a better kidney function. For that reason, I will consult Nephrology to help us with optimizing the kidney function good enough to separately undergo CT of the chest with IV contrast to rule pulmonary embolism with certainty. In the meantime, the patient will remain on IV heparin drip per pulmonary embolism protocol. 5. Regarding his normocytic anemia: I am not sure this is chronic or acute without any baseline to compare. I will do a blood type and screen just in case the patient may require transfusion. For now, there is no gross hematuria. We will watch the hemoglobin and hematocrit closely and further plan will depend on clinical course. 6. He is a full code. Total time spent in care on the day of admission 120 minutes was spent in total, where 10 minutes was spent on chart review, and the remainder of the time was spent in interview, physical examination, counseling, and coordinating care with on-call urologist, Dr. Sandy, and also Dr. Coronel, also by updating the patient's at the bedside multiple times throughout the night, also by updating the patient's multiple times throughout the night for the most recent update and also new findings on the blood tests, also findings on the echo, finding on the EKG, and finding on the venous duplex ultrasound. I answered all of the patient's, the patient's questions and concerns to their satisfaction. I went over the plan of care in detail with the nurse as well. Dr. Coronel also went over the plan of care with me in detail. Further plan will depend on clinical course. I also explained to the patient and the patient's that by using IV heparin drip, there is always a potential complication of bleeding, and can happen anywhere given the patient does use aspirin at home. The patient and the patient's agreed to go ahead with the IV heparin drip and understand all the benefit and risks, and also the risk of bleeding. Further plan will depend on the clinical course. PATIENT'S NAME: [facility] AGE: 46 Y [address] ROOM: [place] [address] LOCATION: [facility] ADMIT DATE: 02/14/2017 History & Physical DISCHARGE DATE: FAMILY PHYSICIAN: PHYSICIANLUIS E ATTENDING PHYSICIAN: ISIDRO PATTERSON MD LES SCHWARTZ/tahir /[id number] D: [id number] T: [id number] HISTORY & PHYSICAL
[2017-02-13 21:22] LABS: LACTATE 1.2 mEq/L (0.50-1.60); PCO2 28 mmHg (35-45); PO2 82 mmHg (80-90)
[2017-02-13 21:25] LABS: BASOPHIL % 0.3 %; HEMOGLOBIN 10.9 g/dL (12.0-17.0); IMMATURE GRANULOCYTE # 0.1 K/uL (0.0-0.3); IMMATURE GRANULOCYTE % 1.2 %; LYMPHOCYTE % 10.1 %; MCH 29.7 pg (27.0-34.0); MCHC 35.2 gm/dL (32.0-36.5); MCV 84.5 fl (83.0-98.0); MONOCYTE # 1.3 K/uL (0.0-1.0); MONOCYTE % 12.9 %; MPV 11.5 fl (9.4-12.4); NEUTROPHIL # (ANC) 7.6 K/uL (1.4-9.0); NEUTROPHIL % 75.5 %; NRBC % 0 /100WBC (0-0.00); PLATELET COUNT 179 K/uL (150-450); RBC 3.67 M/uL (4.00-6.00); RDW-CV 14.5 % (11.9-14.6)
[2017-02-13 21:35] LABS: INR - (THERAPEUTIC) 1.06 (0.92-1.07); PROTIME 11.1 SECONDS (9.8-11.4); PTT 25 SECONDS (25-32)
[2017-02-13 21:49] LABS: ALBUMIN 3.1 gm/dL (3.5-5.0); ALK PHOS 67 IU/L (33-138); ALT 22 IU/L (12-78); ANION GAP 15.8 (10.0-19.0); AST 26 IU/L (10-40); BLOOD UREA NITROGEN 30 mg/dL (6-24); CALCIUM 8.4 mg/dL (8.5-10.5); CHLORIDE 104 mMol/L (96-110); CO2 18 mMol/L (22-32); CPK 141 IU/L (35-332); CREATININE 2.2 mg/dL (0.6-1.3); MAGNESIUM 1.7 mg/dL (1.8-2.6); POTASSIUM 3.8 mMol/L (3.7-5.1); SODIUM 134 mMol/L (135-145); TOTAL PROTEIN 7.6 g/dL (6.0-8.4)
[2017-02-14 00:07] LABS: BILIRUBIN URINE NEGATIVE (NEGATIVE); BLOOD URINE 150 /UL (NEGATIVE); COLOR URINE YELLOW (YELLOW); GLUCOSE URINE 250 mg/dL (NEGATIVE); KETONE URINE 15 mg/dL (NEGATIVE); LEUKOCYTES URINE 500 /UL (NEGATIVE); NITRITE URINE POSITIVE (NEGATIVE); PROTEIN URINE 100 mg/dL (NEGATIVE); TURBIDITY URINE 3+ (CLEAR); UROBILINOGEN URINE 1 mg/dL (NORMAL)
[2017-02-14 00:23] LABS: WBC URINE FULL FIELD #/HPF (NEGATIVE)
[2017-02-14 00:26] LABS: BACTERIA URINE MANY (NEGATIVE); YEAST URINE MANY (NEGATIVE)
[2017-02-14 00:29] LABS: AMORPHOUS URINE 1+ (NEGATIVE); EPITHELIAL URINE 0-2 #/HPF (NEGATIVE)
[2017-02-14 01:39] LABS: CPK 124 IU/L (35-332)
[2017-02-14] MEDS ORDERED: GLUCOTROL5 MG PO (03:48)
[2017-02-14] MEDS ORDERED: FISH OIL 1,0001 EACH PO (03:48)
[2017-02-14] MEDS ORDERED: PRINIVIL (ZESTR20 MG PO (03:49)
[2017-02-14] MEDS ORDERED: NEURONTIN100 MG PO (03:49)
[2017-02-14] MEDS ORDERED: NORVASC10 MG PO (03:49)
[2017-02-14] MEDS ORDERED: COENZYME Q1030 MG PO (03:50)
[2017-02-14 07:13] LABS: ALBUMIN 2.5 gm/dL (3.5-5.0); ALK PHOS 58 IU/L (33-138); ALT 17 IU/L (12-78); ANION GAP 13.6 (10.0-19.0); AST 22 IU/L (10-40); BLOOD UREA NITROGEN 25 mg/dL (6-24); CALCIUM 7.7 mg/dL (8.5-10.5); CHLORIDE 109 mMol/L (96-110); CO2 20 mMol/L (22-32); CREATININE 1.7 mg/dL (0.6-1.3); POTASSIUM 3.6 mMol/L (3.7-5.1); SODIUM 139 mMol/L (135-145); TOTAL BILIRUBIN 2.2 mg/dL (0.0-1.5); TOTAL PROTEIN 6.4 g/dL (6.0-8.4)
[2017-02-14 07:18] LABS: BASOPHIL % 0.4 %; EOSINOPHIL % 0.1 %; HEMATOCRIT 28.9 % (37.0-53.0); HEMOGLOBIN 9.9 g/dL (12.0-17.0); IMMATURE GRANULOCYTE # 0.1 K/uL (0.0-0.3); IMMATURE GRANULOCYTE % 1.1 %; LYMPHOCYTE # 1.2 K/uL (0.8-4.0); MCHC 34.3 gm/dL (32.0-36.5); MCV 87.6 fl (83.0-98.0); MONOCYTE % 11.8 %; MPV 11.9 fl (9.4-12.4); NEUTROPHIL % 72.6 %; NRBC % 0 /100WBC (0-0.00); PLATELET COUNT 151 K/uL (150-450); RDW-CV 14.6 % (11.9-14.6); WBC 8.3 K/uL (4.0-11.0)
[2017-02-15 10:02] LABS: ALBUMIN 2.3 gm/dL (3.5-5.0); ANION GAP 12.6 (10.0-19.0); CALCIUM 8.2 mg/dL (8.5-10.5); CREATININE 1.4 mg/dL (0.6-1.3); PHOSPHORUS 2.2 mg/dL (2.5-4.9); POTASSIUM 3.6 mMol/L (3.7-5.1)
[2017-02-16 05:59] LABS: BASOPHIL % 0.7 %; EOSINOPHIL # 0.1 K/uL (0.0-0.5); EOSINOPHIL % 0.9 %; HEMATOCRIT 31.9 % (37.0-53.0); HEMOGLOBIN 10.6 g/dL (12.0-17.0); IMMATURE GRANULOCYTE # 0.2 K/uL (0.0-0.3); IMMATURE GRANULOCYTE % 3.4 %; LYMPHOCYTE # 1.4 K/uL (0.8-4.0); LYMPHOCYTE % 25.5 %; MCH 29.3 pg (27.0-34.0); MCHC 33.2 gm/dL (32.0-36.5); MCV 88.1 fl (83.0-98.0); MONOCYTE # 0.6 K/uL (0.0-1.0); MONOCYTE % 11.2 %; MPV 12.6 fl (9.4-12.4); NEUTROPHIL # (ANC) 3.2 K/uL (1.4-9.0); NEUTROPHIL % 58.3 %; NRBC % 0 /100WBC (0-0.00); PLATELET COUNT 199 K/uL (150-450); RBC 3.62 M/uL (4.00-6.00); RDW-CV 14.6 % (11.9-14.6); WBC 5.5 K/uL (4.0-11.0)
[2017-02-16 07:20] LABS: ALBUMIN 2.2 gm/dL (3.5-5.0); ANION GAP 11.6 (10.0-19.0); CALCIUM 8.2 mg/dL (8.5-10.5); CREATININE 1.2 mg/dL (0.6-1.3); POTASSIUM 3.6 mMol/L (3.7-5.1)
[2017-02-16 07:21] LABS: PHOSPHORUS 2.2 mg/dL (2.5-4.9)
[2017-02-17 05:49] LABS: ALBUMIN 2.2 gm/dL (3.5-5.0); ANION GAP 10.4 (10.0-19.0); CALCIUM 8.3 mg/dL (8.5-10.5); CREATININE 1.1 mg/dL (0.6-1.3); PHOSPHORUS 2.7 mg/dL (2.5-4.9); POTASSIUM 3.4 mMol/L (3.7-5.1)
[2017-02-19 04:14] LABS: ALBUMIN 2.7 gm/dL (3.5-5.0); ANION GAP 11.8 (10.0-19.0); CALCIUM 8.6 mg/dL (8.5-10.5); CREATININE 1.1 mg/dL (0.6-1.3); POTASSIUM 3.8 mMol/L (3.7-5.1); TOTAL PROTEIN 6.8 g/dL (6.0-8.4)
[2017-02-19 04:20] LABS: TOTAL BILIRUBIN 0.7 mg/dL (0.0-1.5)
[2017-02-19 04:22] LABS: HEMOGLOBIN 10.7 g/dL (12.0-17.0); MCH 29.3 pg (27.0-34.0); MCHC 33.4 gm/dL (32.0-36.5); MCV 87.7 fl (83.0-98.0); MPV 10.5 fl (9.4-12.4); RBC 3.65 M/uL (4.00-6.00); RDW-CV 14.4 % (11.9-14.6); WBC 7.8 K/uL (4.0-11.0)
[2017-02-19 04:23] LABS: PLATELET COUNT 295 K/uL (150-450)
[2017-02-19 05:23] LABS: ABSOLUTE NEUTROPHIL CT (ANC) 5.6 K/uL (1.4-9.0); BANDED NEUTROPHIL # 0.2 K/uL (0.0-0.1); BANDED NEUTROPHILS % 2 %; LYMPHOCYTE # 1.7 K/uL (0.8-4.0); LYMPHOCYTE % 22 %; MONOCYTE # 0.2 K/uL (0.0-1.0); SEGMENTED NEUTROPHIL # 5.5 K/uL (1.4-9.0); SEGMENTED NEUTROPHIL % 70 %
[2017-02-19] MEDS ORDERED: CEFTIN500 MG PO (11:01)
[2017-02-19] MEDS ORDERED: LOPRESSOR25 MG PO (11:04)
== END 2017-02-19 13:03 | disposition disaster alternative care site (69) | DRG 871 ==
LOC: GMED 20:26 → GICU 02-14 00:47
PROVIDERS: Emergency Medicine; Internal Medicine; Internal Medicine Nephrology; Nurse Practitioner; ADMIT Internal Medicine
DX: A41.51 Sepsis due to Escherichia coli [E. coli] (principal); E13.10 Other specified diabetes mellitus with ketoacidosis without coma; J96.01 Acute respiratory failure with hypoxia; N17.0 Acute kidney failure with tubular necrosis; N12 Tubulo-interstitial nephritis, not specified as acute or chronic; N39.0 Urinary tract infection, site not specified; N13.6 Pyonephrosis; Z68.41 Body mass index [BMI] 40.0-44.9, adult; E87.1 Hypo-osmolality and hyponatremia; R65.20 Severe sepsis without septic shock; J45.909 Unspecified asthma, uncomplicated; D64.9 Anemia, unspecified; Z87.442 Personal history of urinary calculi; E66.01 Morbid (severe) obesity due to excess calories; I12.9 Hypertensive chronic kidney disease with stage 1 through stage 4 chronic kidney disease, or unspecified chronic kidney disease; N18.3 Chronic kidney disease, stage 3 (moderate); Z86.711 Personal history of pulmonary embolism; Z79.01 Long term (current) use of anticoagulants; E11.42 Type 2 diabetes mellitus with diabetic polyneuropathy; E11.22 Type 2 diabetes mellitus with diabetic chronic kidney disease
CPT/HCPCS: A9539; A9540; C1751; J0696; J0878; J1644; J1650; J1940; J1956; J2001; J2020; J2185; J2405; J3475; J7030; J7040; J7050; J7060; Q9957